=== PATIENT | male | born 1985 | race Caucasian/White ===

== ENCOUNTER 2017-05-01 12:15 | Emergency (ER) | payer OTHER ==
[2017-05-01 12:20] VITALS: BP 106/89; PULSE 85; RESP 18; TEMP 97.9; O2SAT 97
[2017-05-01] MEDS ORDERED: IBUPROFEN 600 MG TAB PO ONE (12:40)
--- NOTE | 2017-05-01 13:04 | EDPHY ---
H & P Time Seen by Provider: 05/01/17 12:29 HPI/ROS: CHIEF COMPLAINT: Right ankle injury HISTORY OF PRESENT ILLNESS: 31-year-old male presents to the emergency department complaining of isolated pain in his right posterior ankle after playing basketball. The incident happened just prior to arrival. He immediately felt and heard a loud snap. He has isolated pain to his right posterior ankle. Denies any other injury or trauma. Unable to bear weight. ROS: Denies numbness or tingling in his toes, pain in his right foot, right knee or hip. Past Medical/Surgical History: Negative Social History: Single and lives in [place] Physical Exam: On examination no obvious effusion noted. Limited dorsi and plantar flexion secondary to pain. Has obvious palpable deformity noted to the posterior aspect of the right ankle over the Achilles tendon insertion. Clinically I think this patient has a ruptured Achilles tendon. His calf is mildly tender. He has no abrasions or puncture wounds noted. He has normal sensation to light touch. Strong dorsalis pedis pulse on the dorsal aspect of his right foot. Constitutional: Initial Vital Signs Temperature (C) 36.6 C 05/01/17 12:16 Heart Rate 85 05/01/17 12:16 Respiratory Rate 18 05/01/17 12:16 Blood Pressure 106/89 H 05/01/17 12:16 O2 Sat (%) 97 05/01/17 12:16 O2 Delivery Mode Room Air Allergies/Adverse Reactions: No Known Allergies Allergy (Unverified 05/01/17 12:19) Home Medications: Medication Instructions Recorded NK [No Known Home Meds] 05/01/17 MDM/Departure - MDM Medications Given: Discontinued Medications Ibuprofen (Motrin) 600 mg PO EDNOW ONE Stop: 05/01/17 12:41 Last Admin: 05/01/17 12:43 Dose: 600 mg ED Course/Re-evaluation: 31-year-old male presents to the emergency department with right ankle injury. Patient declined x-rays. Clinically I think this patient has a ruptured Achilles tendon. He was placed in a Krishna boot and given crutches and will be nonweightbearing. He was given orthopedic referral. He understands that he will require surgical repair as an outpatient. Patient was also encouraged to use anti-inflammatories elevate his leg as much as possible to help relieve swelling. - Depart Disposition: Home, Routine, Self-Care Clinical Impression: Traumatic rupture of right Achilles tendon Qualifiers: Encounter type: initial encounter Qualified Code(s): S86.011A - Strain of right Achilles tendon, initial encounter Condition: Good Instructions: Achilles Tendon Rupture (ED) Additional Instructions: Krishna boot, nonweightbearing, use crutches. Ibuprofen 600 mg every 8 hours as needed for pain. Follow up with orthopedic surgeon next week to recheck. Return to the emergency department if you develop worsening calf pain or swelling or if you feel worse in any way. Referrals: Devin Mcghee MD [Medical Doctor] - 2-3 days without fail (Orthopedic surgeon on-call)
== END 2017-05-01 13:30 | disposition home or self-care (01) ==
DX: S86.011A Strain of right Achilles tendon, initial encounter (principal); X58.XXXA Exposure to other specified factors, initial encounter; Y99.8 Other external cause status; Y93.67 Activity, basketball
CPT/HCPCS: L4386